=== PATIENT | male | born 1995 | race Caucasian/White ===

== ENCOUNTER 2018-07-29 11:45 | Emergency (ER) | payer MEDICAID ==
[~2018-07-29] VITALS: Ht 180.3 cm; Wt 66.0 kg
[2018-07-29] MEDS ORDERED: acetaminophen 325mg tablet PO ONE (13:00)
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
[2018-07-29 14:05] VITALS: BP 100/63
== END 2018-07-29 14:08 | disposition home or self-care (01) ==
LOC: ER 11:46
DX: F07.81 Postconcussional syndrome (principal); Y08.89XA Assault by other specified means, initial encounter; Y93.89 Activity, other specified; Y92.89 Other specified places as the place of occurrence of the external cause; Y99.8 Other external cause status
CPT/HCPCS: 99282

== ENCOUNTER 2022-09-04 15:20 | Emergency (ER) | payer MEDICAID ==
[~2022-09-04] VITALS: Ht 180.3 cm; Wt 70.5 kg
[2022-09-04 15:56] LABS: BASOPHILS % (AUTO) 0.4 % (0-1); EOSINOPHILS # (AUTO) 0.2 X10'3 (0-0.9); EOSINOPHILS % (AUTO) 4.2 % (0-6); HEMATOCRIT 46.1 % (42.0-52.0); HEMOGLOBIN 15.3 g/dl (14.0-17.9); LYMPHOCYTES # (AUTO) 1.4 X10'3 (1.1-4.8); MEAN CORPUSCULAR HEMOGLOBIN 29.9 PG (27.0-31.0); MEAN CORPUSCULAR HGB CONC 33.3 g/dL (33.0-36.5); MEAN CORPUSCULAR VOLUME 89.8 FL (78-98); MEAN PLATELET VOLUME 9.6 FL (7.4-10.4); MONOCYTES # (AUTO) 0.5 X10'3 (0-0.9); MONOCYTES % (AUTO) 8.9 % (2-12); NEUTROPHILS # (AUTO) 3.8 X10'3 (1.8-7.7); NEUTROPHILS % (AUTO) 62.5 % (42-75); PLATELET COUNT 211 X10'3 (140-440); RED BLOOD COUNT 5.13 X10'6 (4.70-6.10)
[2022-09-04 16:03] LABS: ALANINE AMINOTRANSFERASE 30 U/L (12-78); ALBUMIN 3.9 G/DL (3.4-5.0); ALBUMIN/GLOBULIN RATIO 1.6 (1.1-1.5); ALKALINE PHOSPHATASE 58 IU/L (46-116); ANION GAP 9 (8-16); ASPARTATE AMINO TRANSFERASE 15 U/L (10-37); BILIRUBIN,TOTAL 0.4 MG/DL (0.1-1.0); BLOOD UREA NITROGEN 6 MG/DL (7-18); BUN/CREATININE RATIO 5.6 (10.0-20.0); CALCIUM 9.1 MG/DL (8.5-10.1); CHLORIDE 108 MMOL/L (99-107); CREATININE 1.08 MG/DL (0.60-1.10); GLUCOSE 100 MG/DL (70-104); POTASSIUM 3.9 MMOL/L (3.5-5.1); SODIUM 147 MMOL/L (135-145); TOTAL CARBON DIOXIDE 29.6 MMOL/L (24-32); TOTAL PROTEIN 6.3 G/DL (6.4-8.2); eGFR 83 ML/MIN
[2022-09-04 16:13] LABS: ETHANOL < 0.010 GM/DL (0.0-0.010)
[2022-09-04 16:41] LABS: CLARITY,URINE CLEAR (Clear); COLOR,URINE STRAW (Yellow); GLUCOSE, URINE NEGATIVE (Neg); KETONES,URINE NEGATIVE (Neg); LEUKOCYTE ESTERASE ,URINE NEGATIVE (Neg); NITRITES, URINE NEGATIVE (Neg); OCCULT BLOOD,URINE NEGATIVE (Neg); PROTEIN,URINE NEGATIVE (Neg); UROBILINOGEN,URINE 0.2 E.U/dL (0.2-1.0)
[2022-09-04 16:45] LABS: UA COLLECTION TYPE NON-SPECIFIED
[2022-09-04 16:50] LABS: URINE AMPHETAMINE SCREEN NEGATIVE (Neg); URINE BARBITUATE SCREEN NEGATIVE (Neg); URINE BENZODIAZEPINES SCREEN NEGATIVE (Neg); URINE CANNABINOID SCREEN NEGATIVE (Neg); URINE COCAINE SCREEN NEGATIVE (Neg); URINE METHADONE SCREEN NEGATIVE (Neg); URINE OPIATE SCREEN NEGATIVE (Neg); URINE PHENCYCLIDINE SCREEN NEGATIVE (Neg)
--- NOTE | 2022-09-04 17:19 | NUR ---
[facility] SPEAKING WITH PATIENT AT THIS TIME. JACOBO STATES THE HOLD WILL BE UPHELD AND PLACEMENT PROCESS WITH BEGIN. FAMILY AT BEDSIDE, ALL QUESTIONS AND CONCERNS ADDRESSED.
--- NOTE | 2022-09-04 17:40 | NUR ---
Family took patient's belongings with them for safe keeping and to wash dirty linen.
--- NOTE | 2022-09-04 19:21 | NUR ---
Pt received from main ER, pt calm and cooperative with care. Pt states he has been homeless and lost all of his belongings and has been somewhat anxious wondering how he is going to get his things back. He denies SI/AH/VH.
--- NOTE | 2022-09-05 00:04 | NUR ---
Pt appears to be sleeping.
--- NOTE | 2022-09-05 01:54 | NUR ---
nurse to nurse done with [facility].
--- NOTE | 2022-09-05 03:52 | NUR ---
Pt appears to be sleeping.
--- NOTE | 2022-09-05 06:05 | NUR ---
Pt has been accepted at [facility].
--- NOTE | 2022-09-05 06:47 | NUR ---
Patient is sleeping in bed. Respirations are even and nonlabored.
--- NOTE | 2022-09-05 10:48 | NUR ---
Patient is sleeping in bed with pillow on his head. Patient to go to [facility] [place] [place] at 13:15.
--- NOTE | 2022-09-05 11:04 | NUR ---
Patient came up to nurses station asking if he could use his cell phone, explained that he could use regular phone and he refused. Explained to patient that he is being transferred to [facility], patient is not happy about news. States that he just wants to go back to work.
--- NOTE | 2022-09-05 12:18 | NUR ---
Patient is eatring lunch at this time.
[2022-09-05 13:39] VITALS: BP 99/56
== END 2022-09-05 13:43 ==
LOC: ER 15:21
DX: F31.89 Other bipolar disorder (principal); Z20.822 Contact with and (suspected) exposure to COVID-19; F17.200 Nicotine dependence, unspecified, uncomplicated; F12.10 Cannabis abuse, uncomplicated; F31.9 Bipolar disorder, unspecified; F20.9 Schizophrenia, unspecified; Z59.00 Homelessness unspecified
CPT/HCPCS: 36415; 80053; 80305; 80320; 81003; 84443; 85025; 87811; 99285

== ENCOUNTER 2022-09-27 11:54 | Inpatient (IN) | payer MEDICAID ==
[~2022-09-27] VITALS: Ht 180.3 cm; Wt 84.6 kg
[2022-09-27 12:23] LABS: BASOPHILS # (AUTO) 0.1 X10'3 (0-0.2); BASOPHILS % (AUTO) 1.3 % (0-1); EOSINOPHILS # (AUTO) 0.5 X10'3 (0-0.9); EOSINOPHILS % (AUTO) 7.6 % (0-6); HEMATOCRIT 45.1 % (42.0-52.0); HEMOGLOBIN 15.4 g/dl (14.0-17.9); LYMPHOCYTES # (AUTO) 1.6 X10'3 (1.1-4.8); LYMPHOCYTES % (AUTO) 25.9 % (21-51); MEAN CORPUSCULAR HEMOGLOBIN 31.2 PG (27.0-31.0); MEAN CORPUSCULAR HGB CONC 34.1 g/dL (33.0-36.5); MEAN CORPUSCULAR VOLUME 91.3 FL (78-98); MONOCYTES # (AUTO) 0.4 X10'3 (0-0.9); MONOCYTES % (AUTO) 6.7 % (2-12); NEUTROPHILS # (AUTO) 3.5 X10'3 (1.8-7.7); NEUTROPHILS % (AUTO) 58.5 % (42-75); PLATELET COUNT 217 X10'3 (140-440); RED BLOOD COUNT 4.94 X10'6 (4.70-6.10); RED CELL DISTRIBUTION WIDTH 14.4 % (11.5-14.5)
[2022-09-27 12:29] LABS: ALANINE AMINOTRANSFERASE 48 U/L (12-78); ALBUMIN 4.1 G/DL (3.4-5.0); ALBUMIN/GLOBULIN RATIO 1.5 (1.1-1.5); ALKALINE PHOSPHATASE 60 IU/L (46-116); ANION GAP 11 (8-16); ASPARTATE AMINO TRANSFERASE 19 U/L (10-37); BILIRUBIN,TOTAL 0.4 MG/DL (0.1-1.0); BLOOD UREA NITROGEN 6 MG/DL (7-18); BUN/CREATININE RATIO 7.3 (10.0-20.0); CHLORIDE 105 MMOL/L (99-107); CREATININE 0.82 MG/DL (0.60-1.10); GLUCOSE 99 MG/DL (70-104); POTASSIUM 3.9 MMOL/L (3.5-5.1); SODIUM 141 MMOL/L (135-145); TOTAL CARBON DIOXIDE 24.9 MMOL/L (24-32); TOTAL PROTEIN 6.9 G/DL (6.4-8.2); eGFR > 90 ML/MIN
[2022-09-27 12:39] LABS: ETHANOL < 0.010 GM/DL (0.0-0.010)
[2022-09-27 12:51] LABS: CLARITY,URINE CLEAR (Clear); COLOR,URINE STRAW (Yellow); GLUCOSE, URINE NEGATIVE (Neg); KETONES,URINE NEGATIVE (Neg); LEUKOCYTE ESTERASE ,URINE NEGATIVE (Neg); NITRITES, URINE NEGATIVE (Neg); OCCULT BLOOD,URINE NEGATIVE (Neg); PROTEIN,URINE NEGATIVE (Neg); UROBILINOGEN,URINE 0.2 E.U/dL (0.2-1.0)
--- NOTE | 2022-09-27 13:00 | NUR ---
all belongings logged and patient changed into green scrubs, compliant with care at this time.
--- NOTE | 2022-09-27 13:07 | NUR ---
patient went to restroom and then returned to room, no distress noted.
[2022-09-27 13:28] LABS: UA COLLECTION TYPE VOIDED
--- NOTE | 2022-09-27 14:04 | NUR ---
Patient ambulatory from Main ED to ED OF bed 25. No distress observed. Continue to monitor.
[2022-09-27] MEDS ORDERED: PRAZ1CAP5 PO (14:14)
[2022-09-27] MEDS ORDERED: BENZ1TAB93 PO (14:14)
[2022-09-27 14:27] LABS: URINE AMPHETAMINE SCREEN NEGATIVE (Neg); URINE BARBITUATE SCREEN NEGATIVE (Neg); URINE BENZODIAZEPINES SCREEN NEGATIVE (Neg); URINE CANNABINOID SCREEN NEGATIVE (Neg); URINE COCAINE SCREEN NEGATIVE (Neg); URINE METHADONE SCREEN NEGATIVE (Neg); URINE OPIATE SCREEN NEGATIVE (Neg); URINE PHENCYCLIDINE SCREEN NEGATIVE (Neg)
--- NOTE | 2022-09-27 16:29 | NUR ---
Yuly PALAFOX, evaluating patient. No distress observed. Continue to monitor.
--- NOTE | 2022-09-27 18:25 | NUR ---
One to one with the patient who is resting on his bed. He gave odd and disjointed replies to assessment guestions. He stated he is unable to return to his home and when asked what his discharge plan and replied, "just carlos homeless" He reports his stomach is giving him "trouble" and when asked what was going on he stated, "I just get anxious all the time"
--- NOTE | 2022-09-27 18:28 | NUR ---
Called patient's pharmacy and they only have two medications which the patient has not picked up. The patient was unable to give a medication list but pharmacy confirmed patient med list.
--- NOTE | 2022-09-27 20:00 | NUR ---
Client to be admitted to [facility] for suicidal ideation per FREDA Mckenna/Jena Amaya MD.
[2022-09-27] MEDS: benztropine 1mg tablet PO SCH (20:15)
[2022-09-27] MEDS: prazosin 1mg capsule PO SCH (20:17)
--- NOTE | 2022-09-27 20:18 | NUR ---
The patient's minipress held 2nd to SBP of 104
--- NOTE | 2022-09-27 20:18 | NUR ---
The patient has been accepted at [facility] and will transfer later this evening.
--- NOTE | 2022-09-27 21:55 | NUR ---
The patient appears to be sleeping
--- NOTE | 2022-09-27 22:27 | NUR ---
Patient admitted from Overflow/ER. Patients problems began at home when he began to exhibit impulsive behavior. His family requested the patient to leave the residence. He refused. SCSO responded to the home, they placed the patient on a 5150 for suicidal ideation with a plan to jump of a bridge. He was then brought to [facility] ED for evaluation. Once admitted to Adult Mental Health, the patient began complaining of nausea without vomiting. He was given Zofran 4 mg ODT. Once the patients nausea subsided the patient was given Atarax 50 mg PO. He then retired to sleep.
[2022-09-27] MEDS ORDERED: mag hydrox/Alum hydrox/simeth 30ml oral suspension PO PRN (22:30)
[2022-09-27] MEDS ORDERED: loperamide 2mg capsule PO PRN (22:30)
[2022-09-27] MEDS ORDERED: NICOTINE POLACRILEX 2 MG LOZENGE BC PRN (22:30)
[2022-09-27] MEDS ORDERED: acetaminophen 325mg tablet PO PRN (22:30)
[2022-09-27 22:49] VITALS: BP 98/57; PULSE 64; RESP 14; TEMP 97.3; O2SAT 96
[2022-09-27] MEDS ORDERED: hyDRALAzine 10mg tablet PO PRN (23:10)
[2022-09-27 23:30] VITALS: RESP 20; O2SAT 99
[2022-09-27] MEDS: ondansetron 4mg rapidly disintigrating tab PO PRN (23:30)
[2022-09-28] MEDS: hydrOXYzine 25 MG tablet PO PRN ×3 (00:04→20:34)
[2022-09-28 07:00] VITALS: RESP 14; O2SAT 96
[2022-09-28 07:50] VITALS: BP 101/53; PULSE 73; RESP 14; TEMP 98.6; O2SAT 96
[2022-09-28 08:33] LABS: CHOL/HDL RATIO 4.4 (0.00-4.99); CHOLESTEROL 157 MG/DL (0-200); HDL CHOLESTEROL 36 MG/DL (35-60); LDL CHOLESTEROL 108 MG/DL (50-100); TRIGLYCERIDES 77 MG/DL (20-135)
[2022-09-28] MEDS: nicotine 21mg patch - 24 hr TD SCH (08:33)
[2022-09-28] MEDS: benztropine 1mg tablet PO SCH ×2 (08:33→20:34)
[2022-09-28 09:20] LABS: HEMOGLOBIN A1C 4.9 % (4.5-6.2)
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
--- NOTE | 2022-09-28 16:22 | NUR ---
Pt. reported anxiety which is causing him nausea. Received an order from FREDA Casper for a one-time order of Atarax 50mg to be administered with PRN Zofran. Will continue to monitor pt. closely.
[2022-09-28] MEDS ORDERED: hydrOXYzine 25 MG tablet PO ONE (16:25)
[2022-09-28] MEDS: ondansetron 4mg rapidly disintigrating tab PO PRN (16:39)
--- NOTE | 2022-09-28 18:01 | NUR ---
Nursing progress note: [place] Problem: Patient admitted from Overflow/ER. Patients problems began at home when he began to exhibit impulsive behavior. His family requested the patient to leave the residence. He refused. SCSO responded to the home, they placed the patient on a 5150 for suicidal ideation with a plan to jump of a bridge. He was then brought to [facility] ED for evaluation. Interventions: Provided 1:1 assessment, Medication administration/education/monitoring, Maintained a safe & supportive environment; Clear & simple instructions; Direction & encouragement regarding performance of ADLs; monitored behaviors & maintained clear boundaries; Therapeutic conversation & active listening; Patient education & monitoring. Response: Received Pt in bed sleeping w/o distress. Pt woke and was cooperative with vitals. He took AM meds w/o issue. Pt does not make eye contact when speaking to this RN but is pleasant and agreeable. Pt has a hard time remembering medications he has been on. He was visible on unit in halls and in community room watching TV and seen talking with others. Appetite good as he ate meals well. Pt seems anxious at times and confused about details of how he got here. Pt met with uSsie today and meds have been started/adjusted and Pt is amenable to these changes. Pt given atarax for anxiety in afternoon with good effect. Plan: Pt requires stabilization and safe therapeutic environment and interruption of current crisis.
[2022-09-28 19:00] VITALS: RESP 18; O2SAT 97
[2022-09-28 20:00] VITALS: BP 120/68; PULSE 72; RESP 18; TEMP 96.8; O2SAT 97
[2022-09-28] MEDS ORDERED: traZODone 50mg tablet PO SCH (20:00)
[2022-09-28] MEDS: prazosin 1mg capsule PO SCH (20:34)
[2022-09-28] MEDS: traZODone 50mg tablet PO PRN (20:35)
[2022-09-28] MEDS ORDERED: OLANZAPINE 5 MG TABLET PO SCH (21:00)
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
[2022-09-29 07:30] VITALS: BP 95/50; PULSE 75; RESP 16; TEMP 98.8; O2SAT 97
[2022-09-29] MEDS: benztropine 1mg tablet PO SCH ×2 (07:56→20:31)
[2022-09-29] MEDS: nicotine 21mg patch - 24 hr TD SCH (07:57)
--- NOTE | 2022-09-29 16:03 | NUR ---
Nursing Progress Note: [place] Problem: Patient admitted from Overflow/ER. Patients problems began at home when he began to exhibit impulsive behavior. His family requested the patient to leave the residence. He refused. SCSO responded to the home, they placed the patient on a 5150 for suicidal ideation with a plan to jump of a bridge. He was then brought to [facility] ED for evaluation. Interventions: Provided 1:1 assessment, Therapeutic conversation & active listening; Medication administration/education/monitoring, Maintained a safe & supportive environment; Clear & simple instructions; Direction & encouragement regarding performance of ADLs; monitored behaviors & maintained clear boundaries; Patient education & monitoring. Response: Patient was found sleeping at beginning of shift. Patient was guarded and spoke very little except for comments to his roommate or when handing him something. Patient spent a large position of shift isolating in room. Patient did come out for breif periods to watch tv and take a shower. Patient did express concern about possibly giving roommate poison oak. Patient asked nurse multiple times when he is living. Patient denies SI/AH/VH but investigative writer is not convinced. Plan: Pt requires stabilization and safe therapeutic environment and interruption of current crisis. Addendum: 09/29/22 at 1708 by Daniel Mathis) RUTH ANN SENIOR INSTRUMENTATION ENGINEER documentation: I have reviewed and agree with all interventions, assessments performed and documented by the SENIOR INSTRUMENTATION ENGINEER.
[2022-09-29] MEDS: hydrOXYzine 25 MG tablet PO PRN (17:46)
[2022-09-29] MEDS: ondansetron 4mg rapidly disintigrating tab PO PRN (17:46)
[2022-09-29 19:00] VITALS: RESP 16; O2SAT 94
[2022-09-29 19:17] VITALS: BP 107/69; PULSE 72; RESP 16; TEMP 97.8; O2SAT 99
[2022-09-29] MEDS: prazosin 1mg capsule PO SCH (20:31)
[2022-09-29] MEDS: traZODone 50mg tablet PO PRN (20:31)
[2022-09-29] MEDS: olanzapine 10mg tablet PO SCH (20:32)
[2022-09-30] MEDS: hydrOXYzine 25 MG tablet PO PRN ×2 (00:51→10:43)
[2022-09-30] MEDS ORDERED: traZODone 50mg tablet PO ONE (01:00)
--- NOTE | 2022-09-30 05:11 | NUR ---
Nursing Progress Note: [place] Problem: Patient admitted from Overflow/ER. Patients problems began at home when he began to exhibit impulsive behavior. His family requested the patient to leave the residence. He refused. SCSO responded to the home, they placed the patient on a 5150 for suicidal ideation with a plan to jump of a bridge. He was then brought to [facility] ED for evaluation. Interventions: Provided 1:1 assessment, Therapeutic conversation & active listening; Medication administration/education/monitoring, Maintained a safe & supportive environment; Clear & simple instructions; Direction & encouragement regarding performance of ADLs; monitored behaviors & maintained clear boundaries; Patient education & monitoring. Response: Received pt in dining room, pt is sitting by himself. Pt is more visible out of his room. Pt is withdrawn, guarded and isolates to self. Pt is calm and cooperative. Denies SI/HI/VH, endorses AH but does not elaborate on this. Pt looks depressed and said it is hard to express himself. Alise been having weird dreams, I wake up at 0300 every night. Encouraged pt to try Trazodone tonight for insomnia. My day wasnt very good, I had a poor conversation with my mom. Pt is journaling before bed. Pt is medication compliant with PRN of Trazodone. Pt woke up around 0045 and was feeling anxious, medicated with Atarax 50mg and Trazodone 50mg for sleep. Monitor for safety. Plan: Pt requires stabilization and safe therapeutic environment and interruption of current crisis.
[2022-09-30 07:00] VITALS: RESP 14; O2SAT 97
[2022-09-30 08:00] VITALS: BP 95/48; PULSE 65; RESP 14; TEMP 97.9; O2SAT 97
[2022-09-30] MEDS: benztropine 1mg tablet PO SCH ×2 (08:25→20:17)
[2022-09-30] MEDS: nicotine 21mg patch - 24 hr TD SCH (08:28)
--- NOTE | 2022-09-30 09:40 | NUR ---
Initial: Pt admit DX schizophrenia, bipolar affective d/o, SI, and etoh dependence hx 8-16 hard liquor drinks daily per EMR. Pt PO mostly ~100% initial regular diet meals meeting estimated needs. RD attempted to call floor regarding vitamin recs for etoh but no answer; recs for routine thiamine, folic acid, and MVI given etoh hx if MD agreeable faxed to floor. LBM 09/28 per EMR. Will continue to follow. Rec: 1. continue regular diet 2. routine thiamine, folic acid, and MVI for etoh hx if MD agreeable 3. bowel care per rx 4. weekly wt Addendum: 09/30/22 at [address] Amended: Links added.
[2022-09-30] MEDS ORDERED: PALI156D IM (11:02)
--- NOTE | 2022-09-30 11:04 | NUR ---
Invega Sustaina: Called [facility] and received information. Pt received invega sustaina 234mg IM on 09/12/22 and then Invega sustaina 156mg IM on 09-19-22
[2022-09-30] MEDS: magnesium hydroxide 30ml (MOM) UD suspension PO PRN (11:27)
[2022-09-30] MEDS: acetaminophen 325mg tablet PO PRN (12:14)
--- NOTE | 2022-09-30 17:37 | NUR ---
Nursing progress note: Alvar[place] Problem: Patient admitted from Overflow/ER. Patients problems began at home when he began to exhibit impulsive behavior. His family requested the patient to leave the residence. He refused. SCSO responded to the home, they placed the patient on a 5150 for suicidal ideation with a plan to jump of a bridge. He was then brought to [facility] ED for evaluation. Interventions: Provided 1:1 assessment, Medication administration/education/monitoring, Maintained a safe & supportive environment; Clear & simple instructions; Direction & encouragement regarding performance of ADLs; monitored behaviors & maintained clear boundaries; Therapeutic conversation & active listening; Patient education & monitoring. Response: Received Pt in bed sleeping w/o distress. Pt woke and was cooperative with vitals. He took AM meds w/o issue and was up to community room for breakfast. Pt appears apprehensive and nervous. He engages when spoken with but guarded. Eye contact poor, but he is cooperative and pleasant. Pt given prn Atarax for anxiety before meeting with Susie BARBA. Pt c/o Left Testicle pain and had sonogram done in afternoon. Pt c/o right shoulder/scapula pain r/t muscle tightening and was given Tylenol as a pain reliever with good effect. Pt ate lunch well and watched some TV between periods of resting in his room. Plan: Pt requires stabilization and safe therapeutic environment and interruption of current crisis.
[2022-09-30 19:00] VITALS: RESP 14; O2SAT 97
[2022-09-30 20:00] VITALS: BP 99/61; PULSE 78; RESP 14; TEMP 98
[2022-09-30] MEDS: olanzapine 10mg tablet PO SCH (20:16)
[2022-09-30] MEDS: traZODone 50mg tablet PO PRN (20:17)
--- NOTE | 2022-10-01 00:23 | NUR ---
Nursing progress note: [place] Problem: Patient admitted from Overflow/ER. Patients problems began at home when he began to exhibit impulsive behavior. His family requested the patient to leave the residence. He refused. SCSO responded to the home, they placed the patient on a 5150 for suicidal ideation with a plan to jump of a bridge. He was then brought to [facility] ED for evaluation. Interventions: Provided 1:1 assessment, Medication administration/education/monitoring, Maintained a safe & supportive environment; Clear & simple instructions; Direction & encouragement regarding performance of ADLs; monitored behaviors & maintained clear boundaries; Therapeutic conversation & active listening; Patient education & monitoring. Response: Pt guarded answered only in one word answers at first became a little more talkative later in shift. He said he was depressed but denied SI. He said he was happy that the scan of his "body" was ok. He was referring to the ultrasound of his testicle. He ate snack and watched TV in the group room. He is pleasant and cooperative with care, took all medications, sleeping at this time. Plan: Pt requires stabilization and safe therapeutic environment and interruption of current crisis.
[2022-10-01 07:11] VITALS: BP 99/51; PULSE 66; RESP 14; TEMP 97.9; O2SAT 98
[2022-10-01] MEDS: benztropine 1mg tablet PO SCH ×3 (08:53→21:08)
[2022-10-01] MEDS: nicotine 21mg patch - 24 hr TD SCH (08:55)
[2022-10-01] MEDS: hydrOXYzine 25 MG tablet PO PRN ×2 (09:36→14:50)
[2022-10-01] MEDS: acetaminophen 325mg tablet PO PRN (09:36)
[2022-10-01] MEDS: magnesium hydroxide 30ml (MOM) UD suspension PO PRN (09:37)
--- NOTE | 2022-10-01 14:02 | NUR ---
5250 upheld for DTS and GD
--- NOTE | 2022-10-01 15:04 | NUR ---
NURSING PROGRESS NOTE Problem: Patient has been exhibiting bizarre and impulsive behavior. Pt recently was discharged from [facility] for similar behaviors. Pt's father has a RO against pt. Pt was asked to leave property and required SCSO to escort pt. Pt was placed on a 5150 after telling LE he was suicidal and had a plan to jump off of a bridge. Interventions: Maintained a safe and supportive environment, provided clear and simple instructions, attempted to orient to reality, provided active listening and positive encouragement, and maintained Q 15min safety checks. Response: Received patient sleeping at shift change. Pt woke attended breakfast then returned to his room. Pt was compliant with care and medication. Pt reports sleep was "eh, good, better." Pt reports he is here because his grandparents are out of town and "not allowed to be at house." Pt states "I lost my job and all my investments." Per report and mother's word pt has not worked in three years. Pt reports two PHF placements. Pt presents guarded, small answers. Pt isolates to himself, but is seen on unit. Pt had court today and 5250 was upheld. Pt requested anti anxiety medication, but wouldn't elaborate on his feelings. Pt showered, shaved and linens changed. Plan: Pt continues to present disorganized and is unable to formulate a safe discharge plan. Pt has no insight into his mental health. Pt requires stabilization and safe therapeutic environment and interruption of current crisis. Addendum: 10/01/22 at 1554 by Carlotta Laboy RN Pt has no shown any impulsive behavior. Pt has some latency in his thought process, may be responding to internal stimuli.
[2022-10-01 19:00] VITALS: RESP 16; O2SAT 100
[2022-10-01 20:00] VITALS: BP 101/65; PULSE 82; RESP 16; TEMP 97.7; O2SAT 100
[2022-10-01] MEDS: olanzapine 10mg tablet PO SCH (21:09)
[2022-10-01] MEDS: traZODone 50mg tablet PO PRN (21:09)
--- NOTE | 2022-10-02 00:57 | NUR ---
NURSING PROGRESS NOTE Problem: Patient has been exhibiting bizarre and impulsive behavior. Pt recently was discharged from [facility] for similar behaviors. Pt's father has a RO against pt. Pt was asked to leave property and required SCSO to escort pt. Pt was placed on a 5150 after telling LE he was suicidal and had a plan to jump off of a bridge. Interventions: Maintained a safe and supportive environment, provided clear and simple instructions, attempted to orient to reality, provided active listening and positive encouragement, and maintained Q 15min safety checks. Response: Pt in bed at start of shift. Pt said he was intending to have a nap. "I had a busy day." Pt said he attended groups and will a picture. Pt did not mention going to court or the 5250. Pt is guarded one word answers. Denies all MH symptoms. Up to group room for snack then returned to room. Plan: Pt continues to present disorganized and is unable to formulate a safe discharge plan. Pt has no insight into his mental health. Pt requires stabilization and safe therapeutic environment and interruption of current crisis.
[2022-10-02 08:00] VITALS: BP 96/45; PULSE 71; RESP 14; TEMP 98.2; O2SAT 97
[2022-10-02] MEDS: ondansetron 4mg rapidly disintigrating tab PO PRN (08:56)
[2022-10-02] MEDS: hydrOXYzine 25 MG tablet PO PRN ×2 (08:56→20:17)
[2022-10-02] MEDS: benztropine 1mg tablet PO SCH ×2 (08:56→20:17)
[2022-10-02] MEDS: nicotine 21mg patch - 24 hr TD SCH (08:57)
--- NOTE | 2022-10-02 16:30 | NUR ---
NURSING PROGRESS NOTE Problem: Patient has been exhibiting bizarre and impulsive behavior. Pt recently was discharged from [facility] [place] for similar behaviors. Pt's father has a RO against pt. Pt was asked to leave property and required SCSO to escort pt. Pt was placed on a 5150 after telling LE he was suicidal and had a plan to jump off of a bridge. Interventions: Maintained a safe and supportive environment, provided clear and simple instructions, attempted to orient to reality, provided active listening and positive encouragement, and maintained Q 15min safety checks. Response: Received patient sleeping at shift change. Pt continues to be cooperative with care and medications. Pt reports he sleep well, but "I have this weird pain." "I think I am going to throw up today. Pt r/t his nausea to anxiety. Pt was administered PRN Zofran and Atarax with effect. Pt isolates to himself. Pt is out for meals and snacks. Pt encouraged to attend group, but declined. Pt denies SI, HI, A/VH. Pt has that latency his speech, possibly responding to internal stimuli. Pt told mom (Polly) he wasn't sure how long he would be here, so newspaper writer talked with patient and explained his 5250 hold. Pt was responsive to information and said "thank you." Pt is not forthcoming with his mental health and doesn't elaborate or talk to newspaper writer about current situation. Pt has no insight. Plan: Pt continues to present disorganized and is unable to formulate a safe discharge plan. Pt has no insight into his mental health. Pt requires stabilization and safe therapeutic environment and interruption of current crisis.
[2022-10-02 19:59] VITALS: RESP 16; O2SAT 98
[2022-10-02 20:00] VITALS: BP 115/72; PULSE 83; RESP 16; TEMP 97.9; O2SAT 98
[2022-10-02] MEDS: olanzapine 10mg tablet PO SCH ×2 (20:16→20:26)
[2022-10-02] MEDS: acetaminophen 325mg tablet PO PRN (21:00)
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
[2022-10-03 07:30] VITALS: RESP 16; O2SAT 98
[2022-10-03 07:32] VITALS: BP 93/60; PULSE 73; RESP 16; TEMP 98; O2SAT 98
[2022-10-03] MEDS: benztropine 1mg tablet PO SCH (08:04)
[2022-10-03] MEDS: nicotine 21mg patch - 24 hr TD SCH (08:05)
--- NOTE | 2022-10-03 09:57 | NUR ---
CASE MANAGEMENT [facility] will be back tomorrow to interview Pt. at 10 AM. Keren Lind LCSW
[2022-10-03] MEDS: hydrOXYzine 25 MG tablet PO PRN ×2 (10:37→19:54)
[2022-10-03] MEDS ORDERED: benztropine 1mg tablet PO PRN (15:25)
--- NOTE | 2022-10-03 16:52 | NUR ---
NURSING PROGRESS NOTE Problem: Patient has been exhibiting bizarre and impulsive behavior. Pt recently was discharged from [facility] for similar behaviors. Pt's father has a RO against pt. Pt was asked to leave property and required SCSO to escort pt. Pt was placed on a 5150 after telling LE he was suicidal and had a plan to jump off of a bridge. Interventions: Maintained a safe and supportive environment, provided clear and simple instructions, attempted to orient to reality, provided active listening and positive encouragement, and maintained Q 15min safety checks. Response: Patient was found sitting in chair in room listening to headphones. Patient was reminded to tell nurse if he is feeling anxious or nauseous and needs prns. Patient agreed took morning meds and headed towards community room. Patient continues to isolate and avoid eye contact. Patient was seen later actually talking to another patient before they left. Ten patient retuned to room where he stayed until lunch. Plan: Pt continues to present disorganized and is unable to formulate a safe discharge plan. Pt has no insight into his mental health. Pt requires stabilization and safe therapeutic environment and interruption of current crisis.
--- NOTE | 2022-10-03 18:25 | NUR ---
CHIEF COUNSEL documentation: I have reviewed all intervention and assessments performed and documented by REESE Fairchild.
[2022-10-03 18:45] VITALS: RESP 16; O2SAT 96
[2022-10-03] MEDS: olanzapine 10mg tablet PO SCH (19:54)
[2022-10-03 20:00] VITALS: BP 114/74; PULSE 85; RESP 16; TEMP 99.1; O2SAT 96
--- NOTE | 2022-10-04 04:36 | NUR ---
NURSING PROGRESS NOTE: Problem: Patient has been exhibiting bizarre and impulsive behavior. Pt recently was discharged from [facility] for similar behaviors. Pt's father has a RO against pt. Pt was asked to leave property and required SCSO to escort pt. Pt was placed on a 5150 after telling LE he was suicidal and had a plan to jump off of a bridge. Interventions: Maintained a safe and supportive environment, provided clear and simple instructions, attempted to orient to reality, provided active listening and positive encouragement, and maintained Q 15min safety checks. Response: Upon turn of shift noted patient in room. Approached patient referencing yesterday conversation and doing a 1 leg squat. Smiled as he attempted safely. Discussed exercise and educated on importance of moving his body in addition to nutrition, socializing, community etc. Patient nodded head yeah. Disheveled with poor grooming and green hospital scrubs. Denies MH s/sx. Removed nicotine patch. Compliant with HS meds. PRN Atarax given. Will continue to monitor. Plan: Pt continues to present disorganized and is unable to formulate a safe discharge plan. Pt has no insight into his mental health. Pt requires stabilization and safe therapeutic environment and interruption of current crisis.
[2022-10-04 07:00] VITALS: RESP 16; O2SAT 98
[2022-10-04 08:15] VITALS: BP 109/58; PULSE 78; RESP 16; TEMP 98; O2SAT 98
[2022-10-04] MEDS: hydrOXYzine 25 MG tablet PO PRN ×2 (08:40→20:29)
[2022-10-04] MEDS: nicotine 21mg patch - 24 hr TD SCH (08:44)
--- NOTE | 2022-10-04 13:20 | NUR ---
CASE MANAGEMENT Pt was accepted at the [facility] pending a bed. Keren Lind LCSW
--- NOTE | 2022-10-04 14:03 | NUR ---
NURSING PROGRESS NOTE: Problem: Patient has been exhibiting bizarre and impulsive behavior. Pt recently was discharged from [facility] for similar behaviors. Pt's father has a RO against pt. Pt was asked to leave property and required SCSO to escort pt. Pt was placed on a 5150 after telling LE he was suicidal and had a plan to jump off of a bridge. Interventions: Maintained a safe and supportive environment, provided clear and simple instructions, attempted to orient to reality, provided active listening and positive encouragement, and maintained Q 15min safety checks. Response: Patient is pleasant and cooperative with care; compliant with medication. PRN Atarax provided for reported anxiety. Patient denied SI, HI, A/VH this shift; no apparent delusions expressed. Patient visited with his mom; he claimed it went well. He was accepted by [facility]; pending bed. Patient's room was cleaned up and bed linen changed. Patient mostly self isolates but observed watching TV in the community room and participated in meals. Plan: Pt continues to present disorganized and is unable to formulate a safe discharge plan. Pt has no insight into his mental health. Pt requires stabilization and safe therapeutic environment and interruption of current crisis. Addendum: 10/04/22 at 1458 by Crissy Underwood RN PRN Tylenol for L shoulder pain.
[2022-10-04] MEDS: acetaminophen 325mg tablet PO PRN ×2 (14:56→19:31)
[2022-10-04 19:32] VITALS: RESP 19; O2SAT 97
[2022-10-04 20:00] VITALS: BP 112/74; PULSE 89; RESP 19; TEMP 98; O2SAT 97
[2022-10-04] MEDS: olanzapine 10mg tablet PO SCH (20:29)
[2022-10-04] MEDS: traZODone 50mg tablet PO PRN (20:29)
--- NOTE | 2022-10-05 05:01 | NUR ---
Nursing progress note: [place] Problem: Patient admitted from Overflow/ER. Patients problems began at home when he began to exhibit impulsive behavior. His family requested the patient to leave the residence. He refused. SCSO responded to the home, they placed the patient on a 5150 for suicidal ideation with a plan to jump of a bridge. He was then brought to [facility] ED for evaluation. Interventions: Provided 1:1 assessment, Medication administration/education/monitoring, Maintained a safe & supportive environment; Clear & simple instructions; Direction & encouragement regarding performance of ADLs; monitored behaviors & maintained clear boundaries; Therapeutic conversation & active listening; Patient education & monitoring. Response: Received pt. pacing in the hallway. Pt is calm and cooperative with staff. Pt c/o of chronic left shoulder pain and received Tylenol 650mg with pain score 5/10. Pt appears depressed and isolates to himself, minimal interaction with staff and peers. My anxiety decreases some with the Atarax but doesnt last long and my depression seems to be getting worse. Pt is guarded during interview. I had a good visit with my mom today. Pt has trouble concentrating on things. Encouraged pt. to journal and he said, I was but now Im having trouble focusing my thoughts and its hard to concentrate. Pt is medication compliant and took PRNs of Atarax 100mg and Trazodone 100mg. Pt is encouraged to attend to ADLs before bed. Monitor for safety. Plan: Pt requires stabilization and safe therapeutic environment and interruption of current crisis.
[2022-10-05 07:00] VITALS: RESP 12; O2SAT 97
[2022-10-05 07:36] VITALS: BP 92/50; PULSE 71; RESP 12; TEMP 97.5; O2SAT 97
[2022-10-05] MEDS: nicotine 21mg patch - 24 hr TD SCH (08:40)
[2022-10-05] MEDS: acetaminophen 325mg tablet PO PRN ×2 (08:42→19:52)
[2022-10-05] MEDS: hydrOXYzine 25 MG tablet PO PRN ×2 (11:37→20:37)
--- NOTE | 2022-10-05 14:54 | NUR ---
Nursing Progress Note: Problem : Patient admitted from Overflow/ER. Patients problems began at home when he began to exhibit impulsive behavior. His family requested the patient to leave the residence. He refused. SCSO responded to the home, they placed the patient on a 5150 for suicidal ideation with a plan to jump of a bridge. He was then brought to [facility] ED for evaluation. Interventions : Introduced self and established rapport, maintained a safe and supportive environment, ensured contract for safety, provided clear and simple instructions, encouraged participation on the unit and performance of ADLs, and maintained Q 15min safety checks. Response : Received pt. sleeping in bed at the beginning of the shift, he was awoken to attend breakfast in the Group Room, however refused reporting he was not hungry. Pt. slept in and later 1:1 was completed at bedside. Pt. presents as cooperative, anxious, guarded, and withdraw. He responds minimally to direct questions only and exhibits some latency of speech. Pt. denies any S/I, H/I, A/V/WORTHY, and no delusional statements were made. However, he appears to be minimizing any mental health s/s and may be lacking insight. Pt. received a visit from his Aunt and afterwards requested PRN Atarax for anxiety. When questioned by this magnetic tape typewriter operator regarding the cause for his anxiety he stated vaguely, "I had a long conversation with my Aunt. She is going on a trip to the [employer]." Pt. attended the patio with others, however remains withdrawn and is not observed to be interacting much. He presents with disheveled hair and clothing, however did shower in the afternoon requiring set-up help only from staff. Plan : Pt. continues to require a safe and supportive environment.
[2022-10-05 19:00] VITALS: BP 99/64; PULSE 86; RESP 12; TEMP 97.4; O2SAT 100
[2022-10-05] MEDS: olanzapine 10mg tablet PO SCH (20:37)
[2022-10-05] MEDS: traZODone 50mg tablet PO PRN (20:38)
--- NOTE | 2022-10-06 04:51 | NUR ---
Nursing Progress Note: [place] Problem: Patient admitted from Overflow/ER. Patients problems began at home when he began to exhibit impulsive behavior. His family requested the patient to leave the residence. He refused. SCSO responded to the home, they placed the patient on a 5150 for suicidal ideation with a plan to jump of a bridge. He was then brought to [facility] ED for evaluation. Interventions: Introduced self and established rapport, maintained a safe and supportive environment, ensured contract for safety, provided clear and simple instructions, encouraged participation on the unit and performance of ADLs, and maintained Q 15min safety checks. Response: Received pt in his room where he is sleeping. Pt arouse a little later c/o pain in his left hip. Tylenol 650mg given and ice pack. Pt did get relief and went to snack. Pt denies SI/HI/AVH plus depression. Pt is withdrawn and guarded when questioned. Pt is minimizing his symptoms and tried to not take his Zyprexa. After lots of education and prompting pt took it along with Atarax 100mg and Trazodone 100mg. Pt stated he thinks he slept better last night and couldnt remember if he woke up at 0300 as per usual. Continue to encourage pt to interact with others and try to express his feeling. Pt finds it difficult to relate to other people. Monitor for safety. Plan: Pt. continues to require a safe and supportive environment.
[2022-10-06 07:00] VITALS: RESP 12; O2SAT 96
[2022-10-06 08:00] VITALS: BP 109/72; PULSE 82; RESP 12; TEMP 97.7; O2SAT 96
[2022-10-06] MEDS: nicotine 21mg patch - 24 hr TD SCH (08:27)
[2022-10-06] MEDS: acetaminophen 325mg tablet PO PRN (08:28)
[2022-10-06] MEDS: hydrOXYzine 25 MG tablet PO PRN (16:00)
--- NOTE | 2022-10-06 17:37 | NUR ---
Nursing Progress Note: Problem : Patient admitted from Overflow/ER. Patients problems began at home when he began to exhibit impulsive behavior. His family requested the patient to leave the residence. He refused. SCSO responded to the home, they placed the patient on a 5150 for suicidal ideation with a plan to jump of a bridge. He was then brought to [facility] ED for evaluation. Interventions : Maintained a safe and supportive environment, ensured contract for safety, provided clear and simple instructions, encouraged participation on the unit and performance of ADLs, and maintained Q 15min safety checks. Response : Received pt. sleeping in bed at the beginning of the shift, he was awoken to attend breakfast in the Group Room. Afterwards he showered with set- up help from staff. Pt. was observed to be more present on the unit during the shift and was up watching TV with others. He also paced at intervals staring with wide eyes in what appeared to be a slightly anxious and paranoid manner in the hallway. 1:1 was completed in the afternoon after pt. requested PRN Atarax for anxiety. He remains guarded with conversation and continues to exhibit some latency of speech. When questioned by this contract technical writer regarding the cause of his anxiety, pt. stated, "I had a weird conversation with my mom. I can't get her to make sense." Pt. 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 appears to continue to be lacking insight. Plan : Pt. continues to require a safe and supportive environment.
[2022-10-06 19:00] VITALS: RESP 16; O2SAT 97
[2022-10-06 20:00] VITALS: BP 98/56; PULSE 85; RESP 16; TEMP 98.6; O2SAT 97
[2022-10-06] MEDS: olanzapine 10mg tablet PO SCH (20:08)
--- NOTE | 2022-10-07 04:23 | NUR ---
Nursing Progress Note: Alvarado Problem : Patient admitted from Overflow/ER. Patients problems began at home when he began to exhibit impulsive behavior. His family requested the patient to leave the residence. He refused. SCSO responded to the home, they placed the patient on a 5150 for suicidal ideation with a plan to jump of a bridge. He was then brought to [facility] ED for evaluation. Interventions : Maintained a safe and supportive environment, ensured contract for safety, provided clear and simple instructions, encouraged participation on the unit and performance of ADLs, and maintained Q 15min safety checks. Response : Beginning of shift patient was observed in bed with towel wrapped around face and head. Patient seemed a little standoff during introduction. Pt began to tell me he had a difficult talk with his mother that upset him. He denies any voices and suicidal thoughts. Pt believes he is to leave on Saturday to be transferred to [facility]. Throughout shift patient observed pacing hallways with earplugs in. Plan : Pt. continues to require a safe and supportive environment. Addendum: 10/07/22 at 0521 by Samantha Alba RN respose: patient approached nursing station to request an ice pack and some tylenol. patient is complaining of jaw pain, when asked what happen he said it was from an accident a few says ago. patient is now pacing ortega.
[2022-10-07] MEDS: acetaminophen 325mg tablet PO PRN ×3 (05:14→19:19)
[2022-10-07 07:00] VITALS: RESP 16; O2SAT 98
[2022-10-07] MEDS: nicotine 21mg patch - 24 hr TD SCH (07:57)
[2022-10-07] MEDS: atomoxetine 25mg capsule PO SCH (07:57)
[2022-10-07] MEDS: hydrOXYzine 25 MG tablet PO PRN ×2 (07:57→19:19)
[2022-10-07 08:00] VITALS: BP 92/68; PULSE 78; RESP 16; TEMP 97; O2SAT 98
[2022-10-07] MEDS ORDERED: atomoxetine 40 MG capsule PO SCH (08:00)
--- NOTE | 2022-10-07 16:39 | NUR ---
Nursing Progress Note: Problem : Patient admitted from Overflow/ER. Patients problems began at home when he began to exhibit impulsive behavior. His family requested the patient to leave the residence. He refused. SCSO responded to the home, they placed the patient on a 5150 for suicidal ideation with a plan to jump of a bridge. He was then brought to [facility] ED for evaluation. Interventions : Maintained a safe and supportive environment, ensured contract for safety, provided clear and simple instructions, monitored anxiety and need for intervention, encouraged participation on the unit and performance of ADLs, and maintained Q 15min safety checks. Response : Received pt. up sitting in the hallway wearing ear plugs at the beginning of the shift, upon questioning he reported that he needed ear plugs because "It's loud," however the unit was quiet as others were sleeping at this time. Pt. also had an ice pack on his jaw and c/o pain in this area from an old injury. He then went on to state in what appeared to be a delusional manner, "I have a bump on my chin and I think it's causing bumps on my head." No visible injuries were present. This was endorsed to Dr. Hudson who explained that he believes pt. to be complaining of somatic s/s when he experiences mental health symptoms. Pt. endorsed anxiety and PRN Atarax was administered with effectiveness. Throughout the shift, pt. again paced at intervals staring with wide eyes in what appeared to be a slightly anxious and paranoid manner in the hallway. He remains guarded with conversation and continues to exhibit some latency of speech. Pt. appears to continue to be lacking insight into his mental health. Plan : Pt. continues to require a safe and supportive environment.
[2022-10-07 20:00] VITALS: RESP 16; O2SAT 100
[2022-10-07] MEDS: olanzapine 10mg tablet PO SCH (20:03)
[2022-10-07 20:59] VITALS: BP 112/65; PULSE 99; RESP 16; TEMP 98.7; O2SAT 100
--- NOTE | 2022-10-08 03:42 | NUR ---
Nursing Progress Note: Alvarado Problem : Patient admitted from Overflow/ER. Patients problems began at home when he began to exhibit impulsive behavior. His family requested the patient to leave the residence. He refused. SCSO responded to the home, they placed the patient on a 5150 for suicidal ideation with a plan to jump of a bridge. He was then brought to [facility] ED for evaluation. Interventions : Maintained a safe and supportive environment, ensured contract for safety, provided clear and simple instructions, monitored anxiety and need for intervention, encouraged participation on the unit and performance of ADLs, and maintained Q 15min safety checks. Response : upon introduction patient was found in bed with eyes closed as if he was resting but was easily aroused by my voice. When asked how his day was going, he begin complaining of pain in the neck and jaw area. When asked how he hurt himself, he said I slipped on ice in April while at [facility]. Patient expressed feeling anxious, and asked for Atarax as well as Tylenol for pain. Patient denies voices, thoughts, and hallucinations. patient did not experience any urge to pace or wonder the corridors. patient maintained in bed throughout night with eyes closed and no distress to note. Plan : Pt. continues to require a safe and supportive environment.
--- NOTE | 2022-10-08 03:56 | NUR ---
HOUSE MOVING SUPERVISOR documentation: I have reviewed all intervention and assessments performed and documented by REESE Singh.
[2022-10-08 07:00] VITALS: RESP 18; O2SAT 96
[2022-10-08] MEDS: atomoxetine 25mg capsule PO SCH (07:54)
[2022-10-08] MEDS: nicotine 21mg patch - 24 hr TD SCH (07:55)
[2022-10-08] MEDS: acetaminophen 325mg tablet PO PRN ×2 (07:55→11:49)
[2022-10-08 08:00] VITALS: BP 97/65; PULSE 75; RESP 18; TEMP 98.6; O2SAT 96
--- NOTE | 2022-10-08 08:58 | NUR ---
F/u 10/08: Pt PO mostly 100% avg regular diet meeting estimated needs. KATY d/w RN regarding routine MVI given etoh hx if physician agreeable. LBM 10/07 per EMR. No further interventions at this time. Will continue to follow. Rec: 1. continue regular diet 2. routine MVI for etoh hx if MD agreeable 3. bowel care per rx 4. weekly wt Addendum: 10/08/22 at [address] Amended: Links added.
[2022-10-08] MEDS: tizanidine 4mg tablet PO PRN (11:50)
[2022-10-08] MEDS: hydrOXYzine 25 MG tablet PO PRN (11:50)
--- NOTE | 2022-10-08 16:35 | NUR ---
Nursing Progress Note: [place] Problem: Patient admitted from Overflow/ER. Patients problems began at home when he began to exhibit impulsive behavior. His family requested the patient to leave the residence. He refused. SCSO responded to the home, they placed the patient on a 5150 for suicidal ideation with a plan to jump of a bridge. He was then brought to [facility] ED for evaluation. Interventions: Maintained a safe and supportive environment, ensured contract for safety, provided clear and simple instructions, monitored anxiety and need for intervention, medication administration/education/monitoring, encouraged participation on the unit and performance of ADLs, and maintained Q15min safety checks. Response: Patient received sleeping in his room at shift change. He awoke for breakfast and joined in the group room with peers. Pt was receptive to scheduled medication and 1:1 assessment. He is noted to be guarded and withdrawn. Pt endorsed feelings of suicide with no plan noted. He denies HI, AH or VH. Pt c/o neck pain from stretching too much yesterday. He was given PRN Tylenol per MD order. Pt endorsed that he is feeling badly today but declines to emphasize further. He was isolative to his room intermittently this shift. Patient observed walking around the unit with a blanket wrapped around his shoulders later on in the day. He approached this life underwriter endorsing feelings of anxiety and pain in his neck. He was given PRN medication per MD order. Pt joined for all meals and snack times in the group room with peers this shift. Plan: Pt. continues to require a safe and supportive environment.
--- NOTE | 2022-10-08 17:01 | NUR ---
BANK PRESIDENT documentation: I have reviewed all interventions and assessments performed and documented by REESE Keller.
[2022-10-08 19:00] VITALS: RESP 16; O2SAT 97
[2022-10-08] MEDS: LIDOcaine 5% patch TP PRN (19:23)
[2022-10-08 19:52] VITALS: BP 112/65; PULSE 94; RESP 16; TEMP 97.8; O2SAT 97
[2022-10-08] MEDS: olanzapine 10mg tablet PO SCH (20:16)
--- NOTE | 2022-10-09 01:22 | NUR ---
Nursing Progress Note: [place] Problem: Patient admitted from Overflow/ER. Patients problems began at home when he began to exhibit impulsive behavior. His family requested the patient to leave the residence. He refused. SCSO responded to the home, they placed the patient on a 5150 for suicidal ideation with a plan to jump of a bridge. He was then brought [facility] for [facility]. Interventions: Maintained a safe and supportive environment, ensured contract for safety, provided clear and simple instructions, monitored anxiety and need for intervention, medication administration/education/monitoring, encouraged participation on the unit and performance of ADLs, and maintained Q15min safety checks. Response: Pt in his room awake t shift change. He denies SI, HI, A/V/H. He did report "hard to control thoughts" He had a difficult time describing them. They are not command but the voices are derogatory. He did not go into any more detail when asked. Pt c/o neck pain new order for lidocaine patch so patch applied for 3 hours tonight. Pt reported some improvement. Pt came to group room for snack was pleasant and cooperative. Plan: Pt. continues to require a safe and supportive environment.
[2022-10-09 07:00] VITALS: RESP 12; O2SAT 98
[2022-10-09 07:35] VITALS: BP 101/56; PULSE 70; RESP 12; TEMP 97.6; O2SAT 98
[2022-10-09] MEDS: atomoxetine 25mg capsule PO SCH (08:00)
[2022-10-09] MEDS: multivitamins, therapeutics tablet PO SCH (08:51)
[2022-10-09] MEDS: nicotine 21mg patch - 24 hr TD SCH (08:53)
[2022-10-09] MEDS: LIDOcaine 5% patch TP PRN (09:14)
[2022-10-09] MEDS: tizanidine 4mg tablet PO PRN ×2 (09:15→17:23)
--- NOTE | 2022-10-09 17:47 | NUR ---
Nursing Progress Note: Problem: Patient admitted from Overflow/ER. Patients problems began at home when he began to exhibit impulsive behavior. His family requested the patient to leave the residence. He refused. SCSO responded to the home, they placed the patient on a 5150 for suicidal ideation with a plan to jump of a bridge. He was then brought to [facility] ED for evaluation. Interventions: Maintained a safe and supportive environment, ensured contract for safety, provided clear and simple instructions, monitored anxiety and need for intervention, medication administration/education/monitoring, encouraged participation on the unit and performance of ADLs, and maintained Q15min safety checks. Response: Nurse received pt. asleep at change of shift. 1:1 done at bedside and medications administered. Pt refused his straterra claiming it caused him to have suicidal ideations yesterday. Dr. Hudson discontinued order. Pt denies all MH symptoms today and does not have any thoughts of suicide. Pt. denies racing thoughts but at times has uncontrollable thoughts. Pt showered this shift. Pt seen walking the halls utilizing facility headphones and keeps to himself. Pt attended meals in the community room. PRN lidocaine and zanaflex X2 utilized for neck/back discomfort. Plan: Pt. continues to require a safe and supportive environment.
[2022-10-09 20:00] VITALS: BP 113/66; PULSE 84; RESP 16; TEMP 97.7; O2SAT 97
[2022-10-09] MEDS: traZODone 50mg tablet PO PRN (20:23)
[2022-10-09] MEDS: olanzapine 10mg tablet PO SCH (20:23)
--- NOTE | 2022-10-09 23:32 | NUR ---
Nursing Progress Note: [place] Problem: Patient admitted from Overflow/ER. Patients problems began at home when he began to exhibit impulsive behavior. His family requested the patient to leave the residence. He refused. SCSO responded to the home, they placed the patient on a 5150 for suicidal ideation with a plan to jump of a bridge. He was then brought to [facility] ED for evaluation. Interventions: Maintained a safe and supportive environment, ensured contract for safety, provided clear and simple instructions, monitored anxiety and need for intervention, medication administration/education/monitoring, encouraged participation on the unit and performance of ADLs, and maintained Q15min safety checks. Response: Nurse received pt. asleep at change of shift. Woke pt up for HS medications, the pt refused PRN trazadone and questioned Zyprexa. Pt making comments about how his back is sore and he wasnt sure why it was so sore. Refused any PRNs. Pt states he is depressed, denies SI at this time. Pt isolated to his room all shift, refusing snacks. Pt sleeping with headphones on. Removed lidocaine/nicotine patch. Plan: Pt. continues to require a safe and supportive environment.
[2022-10-10 07:00] VITALS: RESP 14; O2SAT 97
[2022-10-10 08:00] VITALS: BP 86/42; PULSE 69; RESP 14; TEMP 97.7; O2SAT 97
[2022-10-10 08:15] VITALS: BP 103/70; PULSE 72
[2022-10-10] MEDS: multivitamins, therapeutics tablet PO SCH (08:29)
[2022-10-10] MEDS: nicotine 21mg patch - 24 hr TD SCH (08:44)
[2022-10-10] MEDS: tizanidine 4mg tablet PO PRN ×2 (10:23→21:06)
[2022-10-10] MEDS: LIDOcaine 5% patch TP PRN (15:57)
--- NOTE | 2022-10-10 16:40 | NUR ---
Nursing Progress Note: Problem: Patient admitted from Overflow/ER. Patients problems began at home when he began to exhibit impulsive behavior. His family requested the patient to leave the residence. He refused. SCSO responded to the home, they placed the patient on a 5150 for suicidal ideation with a plan to jump of a bridge. He was then brought to [facility] ED for evaluation. Interventions: Maintained a safe and supportive environment, ensured contract for safety, provided clear and simple instructions, monitored anxiety and need for intervention, medication administration/education/monitoring, encouraged participation on the unit and performance of ADLs, and maintained Q15min safety checks. Response: Nurse received pt. asleep at change of shift, pt. awoke for breakfast and returned to bed. Nurse completed 1:1 assessment and medication administration at bedside. Pt. blood pressure was low this AM while he was in bed at 86/42 p. 69. Nurse re-checked BP during assessment and was 103/70 p.72. Pt. encouraged to increase fluid intake. Pt requested PRN Zanaflex at 1020am for back/neck discomfort. Pt. denies SI/HI. Pt. states he does sometimes hear voices at night before he goes to bed but then stated he hears his dreams when he wakes up. He denies racing thoughts but it takes pt. quite some time to articulate fluently. Pt continues to have obsessive thoughts and states he will be starting adderral tomorrow. Pt was calm, receptive and cooperative with this nurse. Lidocaine patch placed to neck at 1600 for c/o pain. PRN effective. Plan: Pt. continues to require a safe and supportive environment.
[2022-10-10 19:29] VITALS: BP 111/60; PULSE 89; RESP 17; TEMP 98.3; O2SAT 98
[2022-10-10 19:59] VITALS: RESP 17; O2SAT 98
[2022-10-10] MEDS: olanzapine 10mg tablet PO SCH (21:06)
[2022-10-10] MEDS: hydrOXYzine 25 MG tablet PO PRN (21:06)
--- NOTE | 2022-10-11 05:28 | NUR ---
Nursing Progress Note: Problem: Patient admitted from Overflow/ER. Patients problems began at home when he began to exhibit impulsive behavior. His family requested the patient to leave the residence. He refused. [facility] responded to the home, they placed the patient on a 5150 for suicidal ideation with a plan to jump of a bridge. He was then brought to [facility] ED for evaluation. Interventions: Maintained a safe and supportive environment, ensured contract for safety, provided clear and simple instructions, monitored anxiety and need for intervention, medication administration/education/monitoring, encouraged participation on the unit and performance of ADLs, and maintained Q15min safety checks. Response: Upon arrival to shift noted patient sleeping. Woke up for snack. Noted hair disheveled and reports that he was informed that his job is still secure once he gets discharged from this facility. He was excited and smiling. Reports feeling hopeful having this to look forward to. Eye contact comes and goes. Fair hygiene noted. During assessment noted patient to be open and more talkative. Compliant with HS meds. C/O pain to neck. PRN Zanaflex and Atarax given with good effect this shift. Will continue to monitor. Plan: Pt. continues to require a safe and supportive environment.
[2022-10-11 07:00] VITALS: RESP 16; O2SAT 96
[2022-10-11] MEDS: methylphenidate 5mg tablet PO SCH ×3 (08:12→16:40)
[2022-10-11] MEDS: multivitamins, therapeutics tablet PO SCH (08:12)
[2022-10-11] MEDS: nicotine 21mg patch - 24 hr TD SCH (08:27)
[2022-10-11 08:43] VITALS: BP 97/51; PULSE 77; RESP 16; TEMP 98.3; O2SAT 96
[2022-10-11] MEDS: tizanidine 4mg tablet PO PRN ×2 (11:18→19:53)
--- NOTE | 2022-10-11 16:52 | NUR ---
Nursing Progress Note: Osmel Problem: Patient admitted from Overflow/ER. Patients problems began at home when he began to exhibit impulsive behavior. His family requested the patient to leave the residence. He refused. [facility] responded to the home, they placed the patient on a 5150 for suicidal ideation with a plan to jump of a bridge. He was then brought to [facility] ED for evaluation. Interventions: Maintained a safe and supportive environment, ensured contract for safety, provided clear and simple instructions, monitored anxiety and need for intervention, medication administration/education/monitoring, encouraged participation on the unit and performance of ADLs, and maintained Q15min safety checks. Response: Nurse received pt. asleep at change of shift. Pt awoke for breakfast. 1:1 done at bedside and medications administered. Pt happy to take his new prescription of Ritalin this shift. Pt later c/o back pain 06/25 and requested his Zanaflex at 1120am. Pt. denies SI/HI. Pt seen utilizing work-out bike in the community room and walking the unit holding a deck of cards but not playing with them. Pt attended lunch. Pt has been sitting in the community room with the deck of cards in his hands, not playing with them but fidgeting with them. Pt showered and stated he felt like his medications are helping and inquired about discharging, nurse informed pt. there were no discharge orders at this time and to focus on adjusting to his medications and healing. Pt was receptive. Plan: Pt. continues to require a safe and supportive environment.
[2022-10-11 19:46] VITALS: RESP 16; O2SAT 98
[2022-10-11 19:48] VITALS: BP 116/67; PULSE 85; RESP 16; TEMP 98; O2SAT 98
[2022-10-11] MEDS: olanzapine 10mg tablet PO SCH (19:53)
[2022-10-11] MEDS: hydrOXYzine 25 MG tablet PO PRN (19:53)
[2022-10-11] MEDS: acetaminophen 325mg tablet PO PRN (19:56)
[2022-10-11] MEDS: LIDOcaine 5% patch TP PRN (19:57)
--- NOTE | 2022-10-12 04:13 | NUR ---
Nursing Progress Note: Problem: Patient c/o pain to neck. Receiving medications for pain. Poor hygiene and disheveled appearance. Interventions: Maintained a safe and supportive environment, ensured contract for safety, provided clear and simple instructions, monitored anxiety and need for intervention, medication administration/education/monitoring, encouraged participation on the unit and performance of ADLs, and maintained Q15min safety checks. Response: Upon arrival to shift noted patient sleeping. Woke up and walked halls while wearing headphones and listening to music. Got him a pitcher of water. Noted hair disheveled and poor hygiene with dirty scrubs worn. Hopeful conversation and reports all the plans he has once he gets out of this facility. Eager to get better and live a normal life and go back to work. Compliant with HS meds. C/O pain to neck- requested Lidoderm patch. PRN Atarax, Zanaflex, Tylenol and Lidoderm patch applied/given with good effect. Will continue to monitor. Plan: Pt. continues to require a safe and supportive environment.
[2022-10-12 08:00] VITALS: BP 76/46; PULSE 73; RESP 12; TEMP 97.5; O2SAT 97
[2022-10-12] MEDS: nicotine 21mg patch - 24 hr TD SCH (08:17)
[2022-10-12] MEDS: tizanidine 4mg tablet PO PRN ×3 (08:17→20:17)
[2022-10-12] MEDS: multivitamins, therapeutics tablet PO SCH (08:19)
[2022-10-12] MEDS: acetaminophen 325mg tablet PO PRN ×2 (08:19→20:18)
[2022-10-12] MEDS: methylphenidate 5mg tablet PO SCH ×3 (08:24→15:37)
[2022-10-12 08:30] VITALS: BP 103/68; PULSE 84
[2022-10-12] MEDS: ondansetron 4mg rapidly disintigrating tab PO PRN (11:37)
[2022-10-12] MEDS: hydrOXYzine 25 MG tablet PO PRN ×2 (11:37→20:17)
[2022-10-12] MEDS: LIDOcaine 5% patch TP PRN (12:32)
[2022-10-12] MEDS ORDERED: tuberculin, purif. prot. deriv. 5 units/0.1ml ID ONE (15:30)
--- NOTE | 2022-10-12 17:44 | NUR ---
Nursing Progress Note: Alvarado Problem: Patient admitted from Overflow/ER. Patients problems began at home when he began to exhibit impulsive behavior. His family requested the patient to leave the residence. He refused. [facility] responded to the home, they placed the patient on a 5150 for suicidal ideation with a plan to jump of a bridge. He was then brought to [facility] ED for evaluation. Interventions: Maintained a safe and supportive environment, ensured contract for safety, provided clear and simple instructions, monitored anxiety and need for intervention, medication administration/education/monitoring, encouraged participation on the unit and performance of ADLs, and maintained Q15min safety checks. Response: Nurse received pt. asleep. Pt. ate all meals in the community room and took all medications cooperatively. Pt. napped intermittently and was not seen interacting with others. Pt. observed walking in hallway listening to headphones. When asked if he remembers why he is here he stated I was at my grandparents house where I shouldnt have been. Performed 1:1 at bedside. No SI, HI, AVH. Pt. reported new feelings of numbness bilateral toes. Pt reports that 2-3 days ago he felt anxious and threw up, forgot to tell RN. Pt reports that he gets nauseous with anxiety and that eating in community room makes him anxious. Given PRN Atarax 25mg, and Ondansetron 4mg for self-reported of nausea and anxiety. Lidocaine patch administered for self-reported muscle spasms on upper back/neck. Acetaminophen 650mg and Zanaflex 0.5mg given for pain with moderate effect. TB test administered. Plan: Pt. continues to require a safe and supportive environment.
[2022-10-12 19:24] VITALS: BP 115/77; PULSE 93; RESP 16; TEMP 98.4; O2SAT 97
[2022-10-12 19:45] VITALS: RESP 16; O2SAT 97
[2022-10-12] MEDS: olanzapine 10mg tablet PO SCH (20:17)
[2022-10-12 21:45] VITALS: RESP 16; O2SAT 97
--- NOTE | 2022-10-13 04:18 | NUR ---
Nursing Progress Note: Problem: Patient admitted from Overflow/ER. Patients problems began at home when he began to exhibit impulsive behavior. His family requested the patient to leave the residence. He refused. [facility] responded to the home, they placed the patient on a 5150 for suicidal ideation with a plan to jump of a bridge. He was then brought to [facility] ED for evaluation. Interventions: Maintained a safe and supportive environment, ensured contract for safety, provided clear and simple instructions, monitored anxiety and need for intervention, medication administration/education/monitoring, encouraged participation on the unit and performance of ADLs, and maintained Q15min safety checks. Response: Upon arrival to shift noted patient sleeping in bed. Later patient got up and walked the halls with headphones on. No socializing see this shift. Mostly seen sitting in spaces that nee Avoids contact mostly with occasional glances. Denies SI or any other MH s/sx. Noted to be excited to get out of this facility and back to a normal life. Patient continues to have poor hygiene and disheveled hair. PRN Atarax, Zanaflex and Tylenol given this shift, with good effect. Compliant with HS meds. Will continue to monitor. Plan: Pt. continues to require a safe and supportive environment.
[2022-10-13 07:00] VITALS: RESP 14; O2SAT 97
[2022-10-13 08:00] VITALS: BP 89/50; PULSE 78; RESP 14; TEMP 98.2; O2SAT 97
[2022-10-13] MEDS: methylphenidate 5mg tablet PO SCH ×3 (08:16→16:24)
[2022-10-13] MEDS: nicotine 21mg patch - 24 hr TD SCH (08:16)
[2022-10-13] MEDS: tizanidine 4mg tablet PO PRN (08:16)
[2022-10-13] MEDS: multivitamins, therapeutics tablet PO SCH (08:16)
[2022-10-13] MEDS ORDERED: venlafaxine XR 37.5mg cap (Q24H) PO ONE (11:25)
[2022-10-13 11:59] LABS: BASOPHILS % (AUTO) 0.5 % (0-1); EOSINOPHILS # (AUTO) 0.2 X10'3 (0-0.9); HEMOGLOBIN 14.8 g/dl (14.0-17.9); LYMPHOCYTES # (AUTO) 1.8 X10'3 (1.1-4.8); LYMPHOCYTES % (AUTO) 32.2 % (21-51); MEAN CORPUSCULAR HEMOGLOBIN 30.6 PG (27.0-31.0); MEAN CORPUSCULAR HGB CONC 33.7 g/dL (33.0-36.5); MEAN CORPUSCULAR VOLUME 90.9 FL (78-98); MEAN PLATELET VOLUME 8.9 FL (7.4-10.4); MONOCYTES # (AUTO) 0.4 X10'3 (0-0.9); MONOCYTES % (AUTO) 7.2 % (2-12); NEUTROPHILS # (AUTO) 3.2 X10'3 (1.8-7.7); NEUTROPHILS % (AUTO) 56.1 % (42-75); PLATELET COUNT 202 X10'3 (140-440); RED BLOOD COUNT 4.84 X10'6 (4.70-6.10); RED CELL DISTRIBUTION WIDTH 13.8 % (11.5-14.5); WHITE BLOOD COUNT 5.7 X10'3 (4.5-11.0)
[2022-10-13 12:10] LABS: ALANINE AMINOTRANSFERASE 216 U/L (12-78); ALBUMIN 3.9 G/DL (3.4-5.0); ALBUMIN/GLOBULIN RATIO 1.4 (1.1-1.5); ALKALINE PHOSPHATASE 57 IU/L (46-116); ANION GAP 8 (8-16); ASPARTATE AMINO TRANSFERASE 44 U/L (10-37); BILIRUBIN,TOTAL 0.7 MG/DL (0.1-1.0); BLOOD UREA NITROGEN 15 MG/DL (7-18); BUN/CREATININE RATIO 18.3 (10.0-20.0); CALCIUM 8.9 MG/DL (8.5-10.1); CHLORIDE 102 MMOL/L (99-107); CREATININE 0.82 MG/DL (0.60-1.10); GLUCOSE 135 MG/DL (70-104); POTASSIUM 3.5 MMOL/L (3.5-5.1); SODIUM 137 MMOL/L (135-145); TOTAL CARBON DIOXIDE 26.7 MMOL/L (24-32); TOTAL PROTEIN 6.7 G/DL (6.4-8.2); eGFR > 90 ML/MIN
[2022-10-13] MEDS: LIDOcaine 5% patch TP PRN (16:24)
--- NOTE | 2022-10-13 16:30 | NUR ---
Nursing Progress Note: Alvarado Problem: Patient admitted from Overflow/ER. Patients problems began at home when he began to exhibit impulsive behavior. His family requested the patient to leave the residence. He refused. [facility] responded to the home, they placed the patient on a 5150 for suicidal ideation with a plan to jump of a bridge. He was then brought to [facility] ED for evaluation. Interventions: Maintained a safe and supportive environment, ensured contract for safety, provided clear and simple instructions, monitored anxiety and need for intervention, medication administration/education/monitoring, encouraged participation on the unit and performance of ADLs, and maintained Q15min safety checks. Response: Received pt. sleeping in bed and in no distress at the beginning of the shift. Pt woke and was cooperative with vitals and returned to sleep. Pt did not get up for breakfast, but took M meds w/o issues. Pt woke late and met with Dr Mcguire and walked around the unit with headphones. Pt appears solemn with flat affect. He brightens for a short time when spoken with then returns to being depressed and flat. He denies SI/HI/AH/VH at this time. Pt used lodocain patch in afternoon on neck.Pt is cautios about the med changes that were made today, but took the meds with encouragement to talk with doctor daily about how he feels. Overall quiet, guarded and isolative. Plan: Pt. continues to require a safe and supportive environment.
[2022-10-13] MEDS: ondansetron 4mg rapidly disintigrating tab PO PRN (17:47)
[2022-10-13] MEDS: hydrOXYzine 25 MG tablet PO PRN (17:47)
[2022-10-13 19:00] VITALS: RESP 16; O2SAT 99
[2022-10-13 19:40] VITALS: BP 128/73; PULSE 93; RESP 16; TEMP 97; O2SAT 99
[2022-10-13] MEDS: OLANZAPINE 5 MG TABLET PO SCH (21:57)
[2022-10-13] MEDS: traZODone 50mg tablet PO PRN (21:57)
--- NOTE | 2022-10-14 04:51 | NUR ---
Nursing Progress Note: Alvarado Problem: Patient admitted from Overflow/ER. Patients problems began at home when he began to exhibit impulsive behavior. His family requested the patient to leave the residence. He refused. [facility]O responded to the home, they placed the patient on a 5150 for suicidal ideation with a plan to jump of a bridge. He was then brought to [facility] ED for evaluation. Interventions: Maintained a safe and supportive environment, ensured contract for safety, provided clear and simple instructions, monitored anxiety and need for intervention, medication administration/education/monitoring, encouraged participation on the unit and performance of ADLs, and maintained Q15min safety checks. Response: Patient is isolating in his room for most of the evening. He was out for a short time for snacks. The patient is well oriented. He presents as quiet and admits to some depression. The patient denies S/I, H/I, or any hallucinations. He had taken off his lidocaine patch from his neck. He was medication compliant. Plan: Pt. continues to require a safe and supportive environment.
[2022-10-14 07:30] VITALS: BP 96/50; PULSE 72; RESP 16; TEMP 98.2; O2SAT 97
[2022-10-14] MEDS: multivitamins, therapeutics tablet PO SCH (08:16)
[2022-10-14] MEDS: methylphenidate 5mg tablet PO SCH ×3 (08:16→16:08)
[2022-10-14] MEDS: venlafaxine XR 75mg capsule (Q24H) PO SCH (08:16)
[2022-10-14] MEDS: nicotine 21mg patch - 24 hr TD SCH (08:19)
[2022-10-14] MEDS: hydrOXYzine 25 MG tablet PO PRN (10:51)
[2022-10-14] MEDS: tizanidine 4mg tablet PO PRN (13:31)
[2022-10-14] MEDS: LIDOcaine 5% patch TP PRN (13:31)
--- NOTE | 2022-10-14 13:57 | NUR ---
DISCHARGE PLAN-10/16/22 Alvarado has been accepted at [facility] and they can take him on Saturday. NATE Moore
--- NOTE | 2022-10-14 17:35 | NUR ---
Nursing Progress Note: Problem: Patient admitted from Overflow/ER. Patients problems began at home when he began to exhibit impulsive behavior. His family requested the patient to leave the residence. He refused. [facility]CSO responded to the home, they placed the patient on a 5150 for suicidal ideation with a plan to jump of a bridge. He was then brought to [facility] ED for evaluation. Interventions: Maintained a safe and supportive environment, ensured contract for safety, provided clear and simple instructions, monitored anxiety and need for intervention, medication administration/education/monitoring, encouraged participation on the unit and performance of ADLs, and maintained Q15min safety checks. Response: RN received pt. asleep in bed at start of shift. Pt. awoke and took medications and ate breakfast. 1:1 done at bedside, pt. denies SI/HI, A/V hallucinations, pt. reports feeling anxious r/t going home and starting a new job. Pt. isolates to his room most of the shift and is socially withdrawn. Pt. requested PRN Zaniflex and lidocaine patch for neck pain, pt. received with good effect. Pt. reports his neck pain started sophomore year of high school due to wrestling. Pt.s TB test was read and was negative. Plan: Pt. continues to require a safe and supportive environment.
[2022-10-14 19:00] VITALS: RESP 16; O2SAT 98
[2022-10-14 19:47] VITALS: BP 113/69; PULSE 89; RESP 16; TEMP 97.8; O2SAT 98
[2022-10-14] MEDS: OLANZAPINE 5 MG TABLET PO SCH (20:32)
--- NOTE | 2022-10-15 01:30 | NUR ---
Nursing Progress Note: Problem: Patient admitted from Overflow/ER. Patients problems began at home when he began to exhibit impulsive behavior. His family requested the patient to leave the residence. He refused. [facility]CSO responded to the home, they placed the patient on a 5150 for suicidal ideation with a plan to jump of a bridge. He was then brought to [facility] ED for evaluation. Interventions: Maintained a safe and supportive environment, ensured contract for safety, provided clear and simple instructions, monitored anxiety and need for intervention, medication administration/education/monitoring, encouraged participation on the unit and performance of ADLs, and maintained Q15min safety checks. Response: Pt awake in bed at start of shift. Pt. denies SI/HI, A/V hallucinations. Pt. isolates to his room all shift. Refused to come to group room for snack. Pt talked about going to the [facility] on Saturday. 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 Further conversation pt said he no longer has a car. Encouraged pt to stay at the [facility] as long as he needed to. Advised he can stay up to 30 days. Pt did not respond. Pt in his room all shift sleeping at this time. Plan: Pt. continues to require a safe and supportive environment.
[2022-10-15] MEDS ORDERED: METH-350 PO (07:15)
[2022-10-15] MEDS ORDERED: LIDO700A47 TP (07:15)
[2022-10-15] MEDS ORDERED: NICO-687 TD (07:15)
[2022-10-15] MEDS ORDERED: HYDR-3686 PO (07:15)
[2022-10-15] MEDS ORDERED: VENL75CA61 PO (07:15)
[2022-10-15] MEDS ORDERED: TRAZ-251 PO (07:15)
[2022-10-15] MEDS ORDERED: OLAN5TAB75 PO (07:15)
[2022-10-15 07:30] VITALS: BP 98/47; PULSE 77; RESP 16; TEMP 98.4; O2SAT 97
[2022-10-15] MEDS: venlafaxine XR 75mg capsule (Q24H) PO SCH (08:47)
[2022-10-15] MEDS: methylphenidate 5mg tablet PO SCH ×3 (08:47→16:38)
[2022-10-15] MEDS: multivitamins, therapeutics tablet PO SCH (08:47)
[2022-10-15] MEDS: nicotine 21mg patch - 24 hr TD SCH (08:54)
[2022-10-15] MEDS: hydrOXYzine 25 MG tablet PO PRN ×2 (10:06→19:00)
--- NOTE | 2022-10-15 16:56 | NUR ---
Nursing Progress Note: Problem: Patient admitted from Overflow/ER. Patients problems began at home when he began to exhibit impulsive behavior. His family requested the patient to leave the residence. He refused. [facility]CSO responded to the home, they placed the patient on a 5150 for suicidal ideation with a plan to jump of a bridge. [facility]. Interventions: Maintained a safe and supportive environment, ensured contract for safety, provided clear and simple instructions, monitored anxiety and need for intervention, medication administration/education/monitoring, encouraged participation on the unit and performance of ADLs, and maintained Q15min safety checks. Response: RN received pt. asleep in bed at start of shift. Pt. awoke and took medications and ate breakfast. 1:1 done at bedside, pt. denies SI/HI, A/V hallucinations, pt. reports feeling anxious about things going on at home and requested anxiolytic, pt. received Atarax 25mg with good effect. Pt. isolates to his room most of the shift and is socially withdrawn. Pt. observed on the phone at times in his room. COVID test done which was negative. Plan: Pt. continues to require a safe and supportive environment.
[2022-10-15 19:00] VITALS: RESP 16; O2SAT 97
[2022-10-15 20:00] VITALS: BP 111/74; PULSE 93; RESP 16; TEMP 98.3; O2SAT 97
[2022-10-15] MEDS: OLANZAPINE 5 MG TABLET PO SCH (20:20)
--- NOTE | 2022-10-16 01:06 | NUR ---
Nursing Progress Note: Problem: Patient admitted from Overflow/ER. Patients problems began at home when he began to exhibit impulsive behavior. His family requested the patient to leave the residence. He refused. [facility]CSO responded to the home, they placed the patient on a 5150 for suicidal ideation with a plan to jump of a bridge. He was then brought to [facility] ED for evaluation. Interventions: Maintained a safe and supportive environment, ensured contract for safety, provided clear and simple instructions, monitored anxiety and need for intervention, medication administration/education/monitoring, encouraged participation on the unit and performance of ADLs, and maintained Q15min safety checks. Response: Pt awake in bed at start of shift. He said he feels anxoius and depressed. Given PRN Atarax. Pt. denies SI/HI, A/V hallucinations. Pt. isolates to his room all shift. Refused to come to group room for snack. Pt said he was nervous about going to the [facility] tomorrow. He kept repeating "I don't know what I'm going to do." Encouraged pt to take advantage of the programs at the [facility]. Pt in his room all shift sleeping at this time. Pt took HS meds and a PRN Atarax. Plan: Pt. continues to require a safe and supportive environment.
[2022-10-16 07:30] VITALS: BP 119/53; PULSE 90; RESP 14; TEMP 98.7; O2SAT 99
[2022-10-16] MEDS: methylphenidate 5mg tablet PO SCH (08:43)
[2022-10-16] MEDS: venlafaxine XR 75mg capsule (Q24H) PO SCH (08:43)
[2022-10-16] MEDS: multivitamins, therapeutics tablet PO SCH (08:43)
[2022-10-16] MEDS: nicotine 21mg patch - 24 hr TD SCH (08:52)
--- NOTE | 2022-10-16 11:01 | NUR ---
DISCHARGE NOTE: Pt. 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 Pt. discharged with all belongings and valuables. RN went over all discharge paperwork with pt. and pt. verbalized understanding of and and signed all paperwork including firearms restriction, f/u appointments and discharge medications, and emergency phone numbers including 911. Pt. denies SI/HI, A/V hallucinations. Pt. reports, "I'm looking forward to starting fresh". Pt. is A&Ox4 and in no apparent distress.
== END 2022-10-16 11:05 | disposition home or self-care (01) | DRG 750 ==
LOC: ER 11:54 → ED HOLD 20:00 → ADULT MH 22:22
PROVIDERS: ADMIT Psychiatry & Neurology Psychiatry; ATTEND Psychiatry & Neurology Psychiatry
DX: F20.0 Paranoid schizophrenia (principal); R45.851 Suicidal ideations; Z91.199 Patient's noncompliance with other medical treatment and regimen due to unspecified reason; F31.9 Bipolar disorder, unspecified; Z20.822 Contact with and (suspected) exposure to COVID-19; F12.90 Cannabis use, unspecified, uncomplicated; F43.10 Post-traumatic stress disorder, unspecified; G89.29 Other chronic pain; F17.210 Nicotine dependence, cigarettes, uncomplicated; F10.20 Alcohol dependence, uncomplicated; Y90.9 Presence of alcohol in blood, level not specified; Z59.00 Homelessness unspecified; Z81.8 Family history of other mental and behavioral disorders
CPT/HCPCS: 36415; 76870; 80053; 80061; 80305; 80320; 81003; 83036; 84443; 85025; 87081; 87811; 93976; 99285; A6250; J3490; Q0177

== ENCOUNTER 2022-10-30 11:42 | Emergency (ER) | payer MEDICAID ==
[~2022-10-30] VITALS: Ht 180.3 cm; Wt 81.8 kg
[~2022-10-30 11:42] MED LIST: HYDR-3686 PO; LIDO700A47 TP; METH-350 PO; NICO-687 TD; OLAN5TAB75 PO; TRAZ-251 PO; VENL75CA61 PO
[2022-10-30 12:49] VITALS: BP 99/61; PULSE 88; TEMP 97.9; O2SAT 97
[2022-10-30] MEDS ORDERED: METH4TAB3 PO (15:59)
[2022-10-30] MEDS ORDERED: CYCL-1 PO (15:59)
[2022-10-30] MEDS ORDERED: cyclobenzaprine 10mg tablet PO ONE (16:00)
[2022-10-30] MEDS ORDERED: ketorolac trometh. 30mg/ml inj. IM ONE (16:00)
[2022-10-30 16:15] VITALS: RESP 18
== END 2022-10-30 16:21 | disposition home or self-care (01) ==
LOC: ER 11:43
DX: M54.2 Cervicalgia (principal); F31.9 Bipolar disorder, unspecified; F12.10 Cannabis abuse, uncomplicated; Z79.899 Other long term (current) drug therapy
CPT/HCPCS: 96372; 99283; J1885

== ENCOUNTER → 2023-04-12 | Outpatient (CLI) | payer MEDICAID ==
[~2023-04-12] MED LIST changes: +CYCL-1 PO; +METH4TAB3 PO
== END | disposition home or self-care (01) ==
LOC: LAB 09:10
PROVIDERS: ATTEND Nurse Practitioner Psychiatric/Mental Health
DX: Z79.899 Other long term (current) drug therapy (principal)
CPT/HCPCS: 93005